=== PATIENT | female | born 1970 | race Two or more races ===

== ENCOUNTER 2023-01-27 10:04 | Emergency (ER) | payer MEDICAID, SELFPAY ==
--- NOTE | ~2023-01-27 | XR_ITS ---
EXAMINATION: XR SHOULDER, RIGHT CLINICAL INFORMATION: Shoulder pain COMPARISON: None available. TECHNIQUE: AP external rotation, Grashey, scapular Y, and axillary views of the right shoulder. FINDINGS: The bones and soft tissues are normal. No fracture. Glenohumeral and acromioclavicular alignment is anatomic with normal joint space. No abnormal soft tissue calcifications. XR/XR shoulder RT min 2V IMPRESSION: Normal right shoulder.
[2023-01-27 10:21] VITALS: BP 139/80; PULSE 82; RESP 20; TEMP 36.8; O2SAT 97; BMI 31.6
--- NOTE | 2023-01-27 10:29 | ECG_ITS ---
Test Reason : CHEST DISCOMFORT Blood Pressure : / mmHG Vent. Rate : 074 BPM Atrial Rate : 074 BPM P-R Int : 126 ms QRS Dur : 078 ms QT Int : 376 ms P-R-T Axes : 012 001 017 degrees QTc Int : 417 ms Normal sinus rhythm Normal ECG No previous ECGs available Referred By: Generic ED Physician Electronically Signed By:NELLY CROWLEY MD
--- NOTE | 2023-01-27 11:39 | ED_ITS ---
HPI - Extremity Problem General Chief complaint: Extremity Problem Stated complaint: R Shoulder Pain No Injury Time Seen by Provider: 01/27/23 10:57 Source: patient, RN notes reviewed and old records reviewed Mode of arrival: ambulatory History of Present Illness HPI Narrative: 52-year-old female with no significant past medical history presenting to the ED complaining of atraumatic right shoulder pain x3 months. Reports intermittent r adiation to chest and down RLE with associated tingling. States pain worse with ROM of right shoulder. Denies known injury/trauma or fall, heavy lifting, headache, back pain, weakness, SOB MD Complaint: extremity pain Onset (ago): month(s) Related Data Previous Rx's Medication Instructions Recorded acetaminophen 500 mg tablet 500 mg PO Q6H PRN fever or pain 01/27/23 (Tylenol Extra Strength) #14 tabs cyclobenzaprine 5 mg tablet 5 mg PO Q8H PRN pain (scale score 01/27/23 7-10) 5 days #14 tabs lidocaine 5 % topical patch 1 patch topical DAILY PRN pain #30 01/27/23 (Lidoderm) ea naproxen 500 mg tablet 500 mg PO BID PRN pain 10 days #20 01/27/23 tabs Allergies Allergy/AdvReac Type Severity Reaction Status Date / Time No Known Allergies Allergy Verified 01/27/23 10:29 Review of Systems Review of Systems: Constitutional: No Fever, No Chills ENT/Mouth: No Ear Pain, No Nasal Congestion, No sore throat, No Rhinorrhea, No Swallowing Difficulty Cardiovascular: No Chest Pain, No SOB Respiratory: No Cough Gastrointestinal: No Nausea, No Vomiting, No Abdominal pain Genitourinary: No Dysuria, No Urinary Frequency, No Hematuria, No Urinary In continence/retention, No Flank Pain Musculoskeletal: + joint pain, No Myalgias, No Joint Swelling Skin: No Skin Lesions, No rash Neuro: No Weakness, No Numbness, + Paresthesias Yes all other systems are reviewed and are negative Constitutional: Constitutional: Reports as per [facility] Past Medical History Attestation statement: The following information was validated with the patient. Source: old records reviewed Social History Social History Advance Directives: No Advance Directives Information Provided: Yes Physical Exam Vital Signs: Vital Signs: Last Vital Signs Temp 98.2 F 01/27/23 10:21 Pulse 82 01/27/23 10:21 Resp 20 01/27/23 10:21 BP 139/80 01/27/23 10:21 Pulse Ox 97 01/27/23 10:21 O2 Del Method Room Air 01/27/23 10:21 BMI result Body Mass Index 31.6 Const: General: cooperative, healthy appearing and no acute distress Orientation/consciousness: patient oriented x3 Limitations: no limitations HEENT: Head: Yes normal to inspection and Yes atraumatic Ears: hearing grossly normal bilaterally General nose exam: Normal external nose present Face and sinus: Yes normal facial exam Eyes: General: appearance normal, both eyes and all related structures EOM: EOMs intact bilaterally Neck: Other: + mild right paraspinal/trapezius muscle tenderness Neck: Yes normal visual inspection, Yes no meningeal signs, No anterior neck swelling and No torticollis Resp: Effort & Inspection: normal respiratory effort and no respiratory distress Cardio: Rate: regular rate Heart sounds: S1 normal heart sound present and S2 normal heart sound present Peripheral pulses: Peripheral pulses 2+ throughout Back/Spine/Pelvis: Other: No midline cervical/thoracic/lumbar spinous tenderness/step-off or deformity Skin: Rashes: no rashes Wounds: no wounds Neuro: General: patient oriented x3, tone normal and no meningeal signs Cranial nerves: Yes CN's II-XII intact bilaterally Gait exam (Neuro): Normal gait present Extrem: Other: Right shoulder without noted deformity. Diffusely tender to palpation. Limited ROM secondary to pain. Neurovascular intact distally. No swelling/erythema or warmth General: Yes normal to inspection Course Course Course Narrative: XR shoulder RT min 2V IMPRESSION: Normal right shoulder. Results discussed with patient including worrisome signs and symptoms and strict return precautions, and when to return to the emergency department. They verbalized understanding and feel safe for discharge at this time. Medications Administered Discontinued Medications Generic Name Dose Route Start Last Admin Trade Name Freq PRN Reason Stop Dose Admin Ketorolac Tromethamine 30 mg 01/27/23 11:45 01/27/23 11:52 Ketorolac Tromethamine 30 Mg/Ml Vial IM 01/27/23 11:46 30 mg ONCE ONE Administration Medical Decision Making Medical Decision Making [facility] Narrative: 52-year-old female with no significant past medical history presenting to the ED complaining of atraumatic right shoulder pain x3 months. On exam vital signs stable, NAD, nontoxic appearing, physical exam as noted above. No midline spinous tenderness throughout or red flag symptoms. Reproducible right shoulder tenderness with limited ROM secondary to pain. No weakness. Neurovascular intact. Concern for arthritis vs tendon/ligamental or rotator cuff injury. Low suspicion for ACS, symptoms atypical. Unlikely PE or cervical dissection. Low suspicion for cord compression Plan: EKG, shoulder x-ray, IM Toradol Please refer to course for remaining clinical decision making, interpretation of labs/imaging results, and discussions with consultants and/or family members. Differential Diagnosis Differential Diagnoses: The differential diagnosis associated with the presentation includes As above Lab Data MDM Lab Attestation statement: I reviewed the patient's lab results. Independent Interpretation I performed an independent interpretation of an: EKG (My interpretation EKG normal sinus rhythm rate of 74. Pr interval 126. QTC 417. No previous to compare. No STEMI ) and Plain X-Ray Radiology Impression Discussion of test interpretation with radiology: I have reviewed the radiologist's reading. Independent Historian Clinical information obtained from an independent historian. History obtained from or confirmed by: Other (son) External Record Review External record reviewed: Inpatient record, Office record, Outpatient record, Prior outpatient labs, Prior outpatient radiology, Primary care record and Outside ED record Tests considered The following testing was considered but not selected: As above Prescription Management I considered prescription management with: Pain Medication Discharge Plan Discharge Clinical Impression: Right shoulder pain Patient Disposition: Home, Self-Care Instructions: Shoulder Pain (ED) Additional Instructions: Your x-ray and EKG were reassuring Your pain is likely musculoskeletal Please follow-up with orthopedic Flexeril is a muscle relaxer, take at night as it makes you drowsy, do not drive, drink alcohol, or operate machinery while taking it Naproxen as an anti-inflammatory / pain medication, take with food Lidoderm patches are numbing patches, apply to painful area In addition take Tylenol at home If symptoms persist or worsen, pain becomes unbearable, you developed urinary retention or incontinence, or weakness return to the ED Renee radiograf?a y electrocardiograma fueron tranquilizadores. Es probable que renee dolor sea musculoesquel?naomi. Por favor mick un seguimiento con el ortop?dico. Flexeril es un relajante muscular, t?andres por la noche ya que produce somnolencia, no conduzca, adam alcohol ni opere maquinaria mientras lo ritu. Naproxeno sheila antiinflamatorio/analg?sico, kimmy con alimentos Los parches de Lidoderm son parches adormecedores, se aplican en el ?aaron dolor jhoana. Adem?s, tome Tylenol en casa. Si los s?ntomas persisten o empeoran, el dolor se vuelve insoportable, usted desarrolla retenci?n urinaria o incontinencia, o debilidad, regrese al servicio de urgencias. Prescriptions: New acetaminophen [Tylenol Extra Strength] 500 mg tablet 500 mg PO Q6H PRN (Reason: fever or pain) Qty: 14 0RF lidocaine [Lidoderm] 5 % adhesive patch,medicated 1 patch topical DAILY MDD remove after 12 hours PRN (Reason: pain) Qty: 30 0RF Rx Instructions: leave on most painful area for up to 12 hrs naproxen 500 mg tablet 500 mg PO BID PRN (Reason: pain) 10 Days Qty: 20 0RF cyclobenzaprine 5 mg tablet 5 mg PO Q8H PRN (Reason: pain (scale score 7-10)) 5 Days Qty: 14 0RF Referrals: [facility] – [place] [facility] [Provider Group] - 1 week Interventions: ED Discharge Assessment Last Done: 01/27/23 13:03 Discharge Date/Time: 01/27/23 13:03 Print Language: Chinese
[2023-01-27] MEDS: Ketorolac Tromethamine 30 MG/ML VIAL IM (11:52)
== END 2023-01-27 13:03 | disposition home or self-care (01) ==
PROVIDERS: Emergency Provider Emergency Medicine
DX: M25.511 Pain in right shoulder (principal); R07.89 Other chest pain; Z79.899 Other long term (current) drug therapy
CPT/HCPCS: 73030; 93005; 96372; 99283; 99284; J1885

== ENCOUNTER 2023-02-21 09:38 | Outpatient (AMB) | payer OTHER, SELFPAY ==
[2023-02-21 09:40] VITALS: BMI 31.4
--- NOTE | 2023-02-21 09:40 | MHC.OFFVIS ---
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 Patient reports that she has had ongoing right shoulder pain for about 4 months now. Denies injury. Limited and painful ROM. Complaints of numbness and tingling in both hands. 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 She complains of pain in her right shoulder for ~3 months now. She has pain with daily activity and limited ROM. She denies any falls, injury, or prior treatment. Review of Systems Const All systems reviewed & are unremarkable except as noted in HPI and below Physical Exam Vital Signs: BMI result Body Mass Index 31.4 Const General: no acute distress, alert and awake Orientation/consciousness: patient oriented x3 HEENT Head: Yes normocephalic and Yes atraumatic Eyes EOM: EOMs intact bilaterally Resp Effort & Inspection: normal respiratory effort and able to speak in complete sentences Cardio Jugular venous distension: no JVD Skin General skin exam: turgor normal Rashes: no rashes Neuro General: patient oriented x3 Extrem Other: ER to 10 degrees compared to 50 on the contralateral side. Active and passive abduction limited Psych Appearance: grossly normal Affect: normal affect Attitude: cooperative Office Procedures Joint Injection/Drain Joint Injection/Drain Details: Injected 1 mL of Decadron and 3 mL 1% lidocaine and 3 mL of 0.25% Marcaine. Site was prepped using aseptic technique. Patient tolerated the procedure well. Primary Site: right shoulder Approach Used: anterolateral Coding 44624 - Large joint Procedure code (CPT) selection complete Results Reviewed Results Reviewed: I personally reviewed relevant radiographs Normal right shoulder Assessment & Plan Assessment & Plan (1) Adhesive capsulitis of right shoulder: Code(s): M75.01 - Adhesive capsulitis of right shoulder Plan: This is a 52-year-old woman with right shoulder use capsulitis. I recommend physical therapy and I injected her right shoulder. I explained the condition. Plan Scribed for Sachin Sandra MD by Dominic Samayoa medical supply technician, on 02/21/23 at 10:00 AM, EST. Orders: Orders PT Evaluation and Treatment Today M75.01 - Adhesive capsulitis of right shoulder Coding Level of Care Code New Pt Level 3 (12660) Diagnoses Adhesive capsulitis of right shoulder M75.01 CPT Codes Coding - 79738 Large joint: 51726 - Large joint ([id number])
== END 2023-02-21 10:35 | disposition home or self-care (01) ==
PROVIDERS: Visit Provider Orthopaedic Surgery
DX: M75.01 Adhesive capsulitis of right shoulder (principal)
CPT/HCPCS: 20610; 99203

== ENCOUNTER → 2023-02-21 09:38 | Outpatient (BNVA) | payer OTHER, SELFPAY | PROVIDERS: Visit Provider Orthopaedic Surgery | DX: M75.01 Adhesive capsulitis of right shoulder (principal) | CPT/HCPCS: 20610; 99202; J0665; J1100 ==

== ENCOUNTER 2023-03-17 10:19 | Emergency (ER) | payer OTHER, SELFPAY ==
[2023-03-17 11:22] VITALS: BP 132/79; PULSE 79; RESP 16; TEMP 37; O2SAT 98; BMI 28.3
--- NOTE | 2023-03-17 11:30 | ED.GENADULT ---
HPI - General Adult General Chief complaint: General Medical Stated complaint: Med refill, pain in arm Time Seen by Provider: 03/17/23 11:29 Source: patient Mode of arrival: ambulatory Limitations: no limitations History of Present Illness HPI narrative: 52-year-old female with pmh of high cholesterol and hypothyroidism and adhesive capsititis of right shoulder presents to ED for medication refill of Synthroid and simvastatin and chronic right shoulder pain. patient wants pain med for chronic right shoulder pain. Patient states her PCP rodolfo not refill her Synthorid and simvastatin. patient denies any recent trauma of right upper extremity, sweling, chest pain, shortness of breath, tingling, hotness, coldness, or ecchyomsis. Related Data Previous Rx's Medication Instructions Recorded acetaminophen 500 mg tablet 500 mg PO Q6H PRN fever or pain 01/27/23 (Tylenol Extra Strength) #14 tabs cyclobenzaprine 5 mg tablet 5 mg PO Q8H PRN pain (scale score 01/27/23 7-10) 5 days #14 tabs lidocaine 5 % topical patch 1 patch topical DAILY PRN pain #30 01/27/23 (Lidoderm) ea naproxen 500 mg tablet 500 mg PO BID PRN pain 10 days #20 01/27/23 tabs cyclobenzaprine 10 mg tablet 10 mg PO TID PRN muscle spasm 7 03/17/23 days #21 tabs levothyroxine 25 mcg tablet 25 mcg PO DAILY 14 days #14 tabs 03/17/23 (Synthroid) simvastatin 20 mg tablet 20 mg PO DAILY 14 days #14 tabs 03/17/23 Allergies Allergy/AdvReac Type Severity Reaction Status Date / Time No Known Allergies Allergy Verified 01/27/23 10:29 Review of Systems Review of Systems: med refill. RIght shoulder pain Yes all other systems are reviewed and are negative Physical Exam ED Vital Signs: Vital Signs - 24 hr 03/17/23 11:22 Temperature 98.6 F Pulse Rate 79 Respiratory Rate 16 Blood Pressure 132/79 Pulse Oximetry 98 Oxygen Delivery Method Room Air BMI result Body Mass Index 28.3 Const General: cooperative, healthy appearing, comfortable, no acute distress, well developed, alert and awake Orientation/consciousness: oriented to person, oriented to place, oriented to time and patient oriented x3 HENMT Head: Yes normal to inspection, Yes No palpable skull fracture present, Yes normocephalic and Yes atraumatic Eyes General: appearance normal, both eyes and all related structures Neck Neck: Yes normal visual inspection, Yes full ROM, Yes no lymphadenopathy, Yes no meningeal signs, Yes trachea midline, Yes supple, No anterior neck swelling and No tender Chest Chest palpation & inspection: normal inspection of the chest and normal palpation of entire chest wall Resp Effort & Inspection: normal respiratory effort and able to speak in complete sentences Auscultation: clear to auscultation bilaterally Cardio Jugular venous distension: no JVD Heart sounds: S1 normal heart sound present and S2 normal heart sound present GI Inspection: Yes normal to inspection Palpation (GI): Soft to palpation, not firm, nontender, no guarding and not rigid General: Yes no CVA tenderness Back/Spine/Pelvis Back: no CVA tenderness and No back tenderness Skin General skin exam: no rashes or lesions noted, elasticity normal and turgor normal Neuro General: oriented to person, oriented to place, oriented to time, patient oriented x3, gait normal, tone normal, moves all extremities, Normal light touch and pain sensation, no meningeal signs and no focal motor deficits Extrem General: Yes normal to inspection and Yes full ROM Shoulder/upper arm images: 1. tenderness on palpation. negative for erythema, ecchymosis, deformity, hotness, coldness, and crepitus. Neuro/Vascular exam is intact. MOtor exam intact, but with pain. patient states this is chronic. Psych Appearance: grossly normal, well kempt and not disheveled Medical Decision Making Medical Decision Making MDM Narrative: 52 yold female with pmh of hypothryoidism, and high cholesterol presents to the Ed for medicaiton refill for syndthoid and simvastatin. Also wants right shoulder pain medication. Denies any new trauma, chest pain, shortness of breath, stiffness, redness, or deformity. No new imaging needed for right upper extremity. MEds refilled. Patient educated on moving shoulder and follow up with PT and PCP. Differential Diagnosis Differential Diagnoses: The differential diagnosis associated with the presentation includes (meds refill. adhesive capsulitis) Prescription Management I considered prescription management with: Other (Synthroid, simvastatin, cyclobenzaprine) Discharge Plan Discharge Clinical Impression: Medication refill Patient Disposition: Home, Self-Care Instructions: Medicine Refill (ED) Additional Instructions: Akshat un seguimiento con el proveedor de atenci?n primaria para continuar reabasteciendo el medicamento. Regrese al servicio de urgencias de inmediato si presenta dolor de tamie, dolor en el pecho, dificultad para respirar, dolor en las extremidades superiores, hinchaz?n, debilidad, mareos, fiebre, escalofr?os, palpitaciones, latidos r?pidos del coraz?n o cualquier otro s?ntoma preocupante. Please follow-up with the primary care provider continued refills of the medication. Return to the ED immediately for any headache, chest pain, shortness of breath, pain upper extremity, swelling, weakness, dizziness, fever, chills, palpitations, heart beating fast, or any other concerning symptoms. Prescriptions: New simvastatin 20 mg tablet 20 mg PO DAILY 14 Days Qty: 14 0RF levothyroxine [Synthroid] 25 mcg tablet 25 mcg PO DAILY 14 Days Qty: 14 0RF cyclobenzaprine 10 mg tablet 10 mg PO TID PRN (Reason: muscle spasm) 7 Days Qty: 21 0RF Rx Instructions: side effect is drowsiness. No Action acetaminophen [Tylenol Extra Strength] 500 mg tablet 500 mg PO Q6H PRN (Reason: fever or pain) Qty: 14 0RF lidocaine [Lidoderm] 5 % adhesive patch,medicated 1 patch topical DAILY MDD remove after 12 hours PRN (Reason: pain) Qty: 30 0RF Rx Instructions: leave on most painful area for up to 12 hrs naproxen 500 mg tablet 500 mg PO BID PRN (Reason: pain) 10 Days Qty: 20 0RF cyclobenzaprine 5 mg tablet 5 mg PO Q8H PRN (Reason: pain (scale score 7-10)) 5 Days Qty: 14 0RF Interventions: ED Discharge Assessment Last Done: 03/17/23 11:57 Discharge Date/Time: 03/17/23 11:57 Print Language: Korean
== END 2023-03-17 11:57 | disposition home or self-care (01) ==
PROVIDERS: Emergency Provider Student in an Organized Health Care Education/Training Program; PCP Internal Medicine
DX: M25.511 Pain in right shoulder (principal); Z76.0 Encounter for issue of repeat prescription; E03.9 Hypothyroidism, unspecified; E78.5 Hyperlipidemia, unspecified
CPT/HCPCS: 99282; 99283

== ENCOUNTER 2023-04-22 10:41 | Outpatient (AMB) | payer OTHER, SELFPAY ==
[2023-04-22 10:42] VITALS: BP 112/78; PULSE 93; TEMP 36.2; O2SAT 96; BMI 30.4
--- NOTE | 2023-04-22 10:42 | MHC.OFFWIV ---
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 Pt new to [facility] [place], originally from [place]. She has an appointment with PCP in July 2023. Pt currently on Levothyroxine 25 mcg and Simvastatin 20 mg. She has Thyroid disease and has been taking meds for 3 years now. She is not sure what kind kind of thyroid disease she has. I will refill her medications today for 7 days pending Lab results ordered today. Will adjust dosing accordingly. [facility] Social History Patient Tobacco Use Status: Never used Tobacco Review of Systems Const All systems reviewed & are unremarkable except as noted in HPI and below Physical Exam Vital Signs: Last Vital Signs Temp 97.2 F 04/22/23 10:42 Pulse 93 04/22/23 10:42 BP 112/78 04/22/23 10:42 Pulse Ox 96 04/22/23 10:42 Oxygen Delivery Method Room Air 04/22/23 10:42 BMI result Body Mass Index 30.4 Const General: no acute distress Orientation/consciousness: patient oriented x3 Neuro General: patient oriented x3 Gait exam (Neuro): Normal gait present Psych Appearance: grossly normal Speech and movement: Clear speech present Assessment & Plan Assessment & Plan (1) Medication refill: Code(s): Z76.0 - Encounter for issue of repeat prescription Plan: - Refilled medications for 7 day - Will order refills after Lab work results. (2) Thyroid disease: Code(s): E07.9 - Disorder of thyroid, unspecified Plan: - Labs for TSH - Labs for Lipids - Obtain fasting labs Orders: Orders TSH reflex Free T4 Today E07.9 - Disorder of thyroid, unspecified Lipid Panel with Reflex Today E07.9 - Disorder of thyroid, unspecified Medications: Changed From levothyroxine (Synthroid) 25 mcg PO DAILY 14 days 14 tabs 0RF E07.9 - Disorder of thyroid, unspecified To levothyroxine (Synthroid) 25 mcg PO DAILY 7 days 7 tabs 0RF E07.9 - Disorder of thyroid, unspecified From simvastatin 20 mg PO DAILY 14 days 14 tabs 0RF E78.2 - Mixed hyperlipidemia To simvastatin 20 mg PO DAILY 7 days 7 tabs 0RF E78.2 - Mixed hyperlipidemia Coding Level of Care Code New Pt Level 3 (51808) Diagnoses Medication refill Z76.0 Thyroid disease E07.9 Time Spent (min) 15
== END 2023-04-22 11:15 | disposition home or self-care (01) ==
PROVIDERS: PCP Internal Medicine; Visit Provider Nurse Practitioner Family
DX: E07.9 Disorder of thyroid, unspecified (principal); Z76.0 Encounter for issue of repeat prescription
CPT/HCPCS: 99203

== ENCOUNTER 2023-04-23 06:31 | Outpatient (REF) | payer OTHER, SELFPAY ==
[2023-04-23 11:24] LABS: Cholesterol 206 mg/dL (<200); HDL Cholesterol 73 mg/dL (>40); LDL Cholesterol Calculated 113 mg/dL (<100); Triglycerides 102 mg/dL (<150)
[2023-04-23 11:31] LABS: Reflex LDLD? No
[2023-04-23 12:13] LABS: Free T4 (Free Thyroxine) 0.86 ng/dL (0.71-1.85)
== END 2023-04-23 06:32 | disposition home or self-care (01) ==
LOC: HO.HMGCLDS 06:31
PROVIDERS: PCP Internal Medicine; Visit Provider Nurse Practitioner Family
DX: E07.9 Disorder of thyroid, unspecified (principal)
CPT/HCPCS: 36415; 80061; 84439; 84443

== ENCOUNTER 2023-04-29 09:00 | Outpatient (RCR) | payer OTHER, SELFPAY ==
--- NOTE | 2023-03-11 08:55 | MHC.PT.EP ---
[facility] [place] Office [place] Office [place] Office [address] [phone] F: [phone] F: [phone] F: [phone] F: [phone] Physical Therapy Plan of Care Date of Evaluation: 03/11/23 Date of Surgery: NA Diagnosis: Adhesive capsulitis of R shoulder Assessment: Lita is a 52 year old female who is referred to PT for adhesive capsulitis of R shoulder . She reports of having gradual onset of shoulder pain about 4 months back. She denies any trauma or falls. Her symptoms have gotten worse with time. On PT examination she presented 4/10 pain at rest and 10/10 pain with shoulder movements sideways, backwards and sleeping on R side, presented with TTP over R UT, decreased R shoulder ROM and joint mobility, decreased R shoulder and scap strength and altered posture. She lives with her son. She is independent with all ADLS but has pain with them and therefore modifies the way she does them. She is unemployed. She would benefit from skilled PT to address the aforementioned impairments and improve tolerance to functional activities. Frequency and Duration: The patient will be seen 2/week for 6 weeks Short Term Goals: 1. Pt will have 50% decrease in pain which will enable her to sleep through the night in 3 weeks. 2. Pt will present 50% improvement in R shoulder ROM which will enable her to perform all ADLS with shoulder movements less than 90 degrees without pain in 4 weeks. 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 Pt will present with increase in shoulder strength by 1 grade which will enable her to perform IADLS at home without pain in 5 weeks. 2. Pt will be independent with all HEP for symptom management and maintenance following d/c in 6 weeks. Treatment Plan: Modalities to reduce pain, spasms and effusion. Manual therapy to restore motion and function. Therapeutic exercise to improve strength and flexibility. Neuromuscular re-education for posture and balance. Therapeutic activities to return to functional activities of daily living. Electronically signed by: Tatiana Mills PT DPT Please sign and return to therapist. Thank you for your referral.
--- NOTE | 2023-04-29 10:27 | MHC.PT.DC ---
[facility] [place] [facility] [place] [facility] [place] [facility] [address] Niels Gordon [address] [phone] F: [phone] F: [phone] F: [phone] F: [phone] Physical Therapy Discharge Report Diagnosis: Adhesive capsulitis of R shoulder Date of Surgery: NA Date of Evaluation: 03/11/23 Date of Discharge: 04/29/23 Treatments to Date: 6 Cancellations to Date: 5 No Shows to Date: 2 Discharge Status: Independent with HEP Patient Elected to Stop Discharge Summary: Lita arrived for her 6th visit stating she still has pain in her R shoulder. Her neck pain is better but her shoulder pain has been unchanged. Her gross R shoulder ROM does not appear to have improved much. Per pt she has been doing her HEP. She has attended 6 PT visits, canceled 5 and no showed 2 in the course over 1.5 months. She is independent with her scap strengthening and shoulder ROM exercises. Due to plateau with PT and inability to achieve further improvement with ROM and pain levels, Lita requested d/c from PT today. She was advised to follow up with her ortho to further discuss pain management. I reviewed all exercises with her today. Lita is d/c from PT today. Electronically signed by: Tatiana Mills PT DPT Please sign and return to therapist. Thank you for your referral.
== END 2023-04-29 10:28 | disposition home or self-care (01) ==
LOC: HO.PT 09:00
PROVIDERS: PCP Internal Medicine; Visit Provider Orthopaedic Surgery
DX: M75.01 Adhesive capsulitis of right shoulder (principal)
CPT/HCPCS: 97110; 97140; 97161

== ENCOUNTER 2023-05-20 10:56 | Outpatient (AMB) | payer OTHER, SELFPAY ==
[2023-05-20 11:02] VITALS: BMI 30.4
--- NOTE | 2023-05-20 11:02 | A.OFFVIS_ITS ---
Intake Vital Signs 05/20/23 11:02 Height 5 ft 1 in Weight 161 lb BMI 30.4 Intake Visit Reasons: OV - Rt Shoulder Adhesive Capsulitis Allergies No Known Allergies Allergy (Verified 04/22/23 10:42) HPI OV - Rt Shoulder Adhesive Capsulitis HPI Details Lita is a 52 year old left hand dominant female who presents today for a follow up of her Right Shoulder Adhesive Capsulitis. Last Injection administered on 02/21/23. Patient reports that this last injection was not helpful, she is requesting medication for her pain. [facility] Social History Patient Tobacco Use Status: Never used Tobacco Physical Exam Vital Signs: BMI result Body Mass Index 30.4 Extrem Other: ER to 5 deg with pain on right. ER to 45 on left abduction with scapular recruitment to 70 on right. Assessment & Plan Assessment & Plan (1) Adhesive capsulitis of right shoulder: Code(s): M75.01 - Adhesive capsulitis of right shoulder Plan: Right shoulder adhesive capsulitis. I recommend referral to Dr Cameron in IR for embolization. Orders: Referrals Interventional Radiology Referral M75.01 - Adhesive capsulitis of right kenny Coding Level of Care Code Est Pt Level 3 (27846) Diagnoses Adhesive capsulitis of right shoulder M75.01
== END 2023-05-20 12:02 | disposition home or self-care (01) ==
PROVIDERS: PCP Internal Medicine; Visit Provider Orthopaedic Surgery
DX: M75.01 Adhesive capsulitis of right shoulder (principal)
CPT/HCPCS: 99213

== ENCOUNTER → 2023-05-20 10:56 | Outpatient (BNVA) | payer OTHER, SELFPAY | PROVIDERS: PCP Internal Medicine; Visit Provider Orthopaedic Surgery | DX: M75.01 Adhesive capsulitis of right shoulder (principal) | CPT/HCPCS: 99212 ==

== ENCOUNTER 2023-06-29 23:11 | Emergency (ER) | payer OTHER, SELFPAY ==
--- NOTE | 2023-06-29 | ECG_ITS ---
Test Reason : difficulty swolling Blood Pressure : / mmHG Vent. Rate : 069 BPM Atrial Rate : 069 BPM P-R Int : 128 ms QRS Dur : 080 ms QT Int : 384 ms P-R-T Axes : 055 -03 011 degrees QTc Int : 411 ms Normal sinus rhythm Normal ECG When compared with ECG of 27-JAN-2023 10:28, No significant change was found Referred By: Generic ED Physician Electronically Signed By:JUAN CORADO
--- NOTE | ~2023-06-29 | XR_ITS ---
EXAMINATION: XR CHEST CLINICAL INFORMATION: Shortness of breath and chest pain COMPARISON: None available. TECHNIQUE: Frontal view of the chest was obtained. FINDINGS: No significant abnormality is noted involving the heart, lungs, mediastinum, bony thorax or soft tissues. XR/XR chest 1V IMPRESSION: Unremarkable examination.
[2023-06-29 23:29] VITALS: BP 169/82; PULSE 79; RESP 18; TEMP 36.7; O2SAT 100; BMI 28.3
[2023-06-30 00:15] VITALS: BP 146/63; PULSE 80; RESP 16; TEMP 36.9; O2SAT 97
--- NOTE | 2023-06-30 00:17 | MHC.EDTECH ---
patient ekg was taken and was reasd bp provider ,vitals done ,rsv/flu swab and streap swab all sent to lab .
[2023-06-30 00:30] LABS: IDNOW Serial# 08D9AD1C; Strep A Nucleic Acid Negative (Negative)
[2023-06-30 01:00] LABS: Influenza A PCR NEGATIVE (Negative); Influenza B PCR NEGATIVE (Negative); Resp Syncy Virus RNA Qual PCR NEGATIVE (Negative); SARS COV2 PCR INHOUSE NEGATIVE (Negative)
[2023-06-30 07:06] VITALS: BP 147/88; PULSE 72; RESP 12; TEMP 36.1; O2SAT 98
--- NOTE | 2023-06-30 07:39 | ED_ITS ---
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 The patient notes she has had intermittent dyspnea not related to exertion comes out of nowhere for months in [place] they could not figure it out they tested her for asthma and it was negative. She had same episode last night woke up feeling dyspneic and then her throat felt tight and she couldn't relax. MD complaint: dyspnea Onset (ago): month(s) (8+) Location: chest Radiation: non-radiation Severity: moderate Pain Consistency: intermittent Relieving factors: none Exacerbating factors: none Associated symptoms: other (will feel she cannot swallow at times) Treatments prior to arrival: none Related Data Previous Rx's ?Medication ?Instructions ?Recorded acetaminophen 500 mg tablet 500 mg PO Q6H PRN fever or pain 01/27/23 (Tylenol Extra Strength) #14 tabs levothyroxine 25 mcg tablet 25 mcg PO DAILY #90 tabs 04/24/23 (Synthroid) simvastatin 20 mg tablet 20 mg PO DAILY #90 tabs 04/24/23 hydroxyzine HCl 25 mg tablet 25 mg PO BID PRN anxiety #30 tabs 06/30/23 Allergies Allergy/AdvReac Type Severity Reaction Status Date / Time No Known Allergies Allergy Verified 06/29/23 23:32 Review of Systems 2 Review of Systems: Constitutional : No Fever, No Chills ENT/Mouth : No sore throat, No Rhinorrhea, pos Swallowing Difficulty Eyes: No Eye Pain, No Swelling, No Redness Cardiovascular : No Chest Pain, positive SOB, No Orthopnea, no Edema Respiratory : No Cough, No Sputum, No Wheezing, positive dyspnea Gastrointestinal : No Nausea, No Vomiting, No Diarrhea, No abdominal Pain, No Hematochezia, No Melena Genitourinary : No Dysuria, No Urinary Frequency, No Hematuria Musculoskeletal : No joint pain, No Myalgias Skin : No Skin Lesions, No rash Neuro : No Weakness, No Numbness, No Dizziness, No Headache Psych : No Anxiety/Panic, No Depression All other systems reviewed and are negative PMFSH Past Medical History Attestation statement: The following information was validated with the patient. Source: old records reviewed Medical History Adhesive capsulitis of right shoulder Social History Social History Patient Tobacco Use Status: Never used Tobacco Advance Directives: No Advance Directives Information Provided: Yes Physical Exam ED Vital Signs: Vital Signs - 24 hr 06/29/23 23:29 06/30/23 00:15 06/30/23 07:06 Temperature 98.0 F 98.4 F 97.0 F Pulse Rate 79 80 72 Respiratory Rate 18 16 12 Blood Pressure 169/82 H 146/63 H 147/88 H Pulse Oximetry 100 97 98 Oxygen Delivery Method Room Air Room Air Room Air BMI result Body Mass Index 28.3 Appearance: Alert. Oriented X3. No acute distress. Eyes: Pupils equal, round and reactive to light. ENT: Pharynx normal. Neck: Normal inspection. Neck supple. CVS: Normal heart rate and rhythm. Pulses normal. Respiratory: No respiratory distress. Breath sounds normal. Abdomen: Soft and nontender. Skin: Skin warm and dry. Normal skin color. Normal skin turgor. Extremities: No lower extremity edema. No calf ttp Neuro: Oriented X 3. No motor deficit. No sensory deficit. Medical Decision Making Medical Decision Making MDM Narrative: 53 yo female with recurrent intermittent dyspnea and feeling like her throat is closing at times not related to exertion cannot find a cause per her at this time will need labs for anemia, CXR for mass, her throat exam is completely normal her lungs are clear it does seem possibly anxiety related. No chest pain/hypoxia or related to exertion to suggest ACS she also has had this for 8 months doubt VTE. If work up negative will start on atarax. Differential Diagnosis Differential Diagnoses: The differential diagnosis associated with the presentation includes anxiety, anemia no chest pain not exertional doubt ACS 8 months duration no signs of dvt no hypoxia doubt VTE Admission/Observation Consideration of admission/observation: Escalation of care including admission/observation considered labs and VS reassuring Lab Data [facility] Lab Attestation statement: I reviewed the patient's lab results. 06/30/23 08:08 06/30/23 08:08 Labs: Lab Results 06/30/23 06/30/23 Range/Units 00:14 08:08 WBC 6.7 (4.8-10.8) X10*3/uL RBC 3.93 L (4.20-5.50) X10*6/uL Hgb 11.6 L (12.0-16.0) g/dl Hct 35.9 L (37.0-47.0) % MCV 91.3 (80.0-98.0) fL MCH 29.5 (27.0-33.0) pg MCHC 32.3 (31.0-35.0) g/dl RDW 12.4 (11.0-16.0) % Plt Count 241 (160-400) X10*3/uL MPV 10.2 (9.4-12.3) fL Absolute Nucleated RBC 0.000 (0.0-0.012) X10*3/uL Nucleated RBC % (auto) 0.0 (0.0-0.2) /100WBC Sodium 142 (135-145) mmol/L Potassium 4.5 (3.3-5.1) mmol/L Chloride 106 (96-108) mmol/L Carbon Dioxide 28 (22-29) mmol/L Anion Gap 13 (12-20) BUN 17 H (9-16) mg/dL Creatinine 0.76 (0.5-1.4) mg/dL Estim Creat Clear Calc 75.5 Estimated GFR > 60 Random Glucose 91 (60-115) mg/dL Calcium 9.7 (8.4-10.2) mg/dL TSH 2.03 (0.32-4.0) uIU/mL Influenza Type A (PCR) NEGATIVE (Negative) Influenza Type B (PCR) NEGATIVE (Negative) RSV RNA Qual (PCR) NEGATIVE (Negative) SARS-CoV-2 RNA (RT-PCR) NEGATIVE (Negative) S. pyogenes GrpA JANE Negative (Negative) Independent Interpretation I performed an independent interpretation of an: EKG and Plain X-Ray Interpretation: Rate: 69 Rhythm: NSR [place]: left Normal P waves. Normal JAROD. Normal QRS complex. ST T wave : normal no AJ, inverted t wave III qTC: 411 prior studies: no acute ischemia The study has been interpreted contemporaneously by me. . Radiology Impression Discussion of test interpretation with radiology: I have reviewed the radiologist's reading. External Record Review External record reviewed: Outpatient record Prescription Management I considered prescription management with: Other Discharge Plan Discharge Clinical Impression: Chronic dyspnea Patient Disposition: Home, Self-Care Instructions: Dyspnea (ED) Additional Instructions: labs reassuring, chest xray and EKG normal return for worsening symptoms or concerns follow up with your doctor as scheduled thyroid normal Prescriptions: New hydroxyzine HCl 25 mg tablet 25 mg PO BID PRN (Reason: anxiety) Qty: 30 0RF No Action levothyroxine [Synthroid] 25 mcg tablet 25 mcg PO DAILY Qty: 90 0RF simvastatin 20 mg tablet 20 mg PO DAILY Qty: 90 0RF acetaminophen [Tylenol Extra Strength] 500 mg tablet 500 mg PO Q6H PRN (Reason: fever or pain) Qty: 14 0RF Print Language: Honduran
--- NOTE | 2023-06-30 08:10 | PC.NURSE ---
labs obtained and sent
[2023-06-30 08:17] LABS: Hematocrit 35.9 % (37.0-47.0); Hemoglobin 11.6 g/dl (12.0-16.0); Mean Corpuscular HGB Conc 32.3 g/dl (31.0-35.0); Mean Corpuscular Hemoglobin 29.5 pg (27.0-33.0); Mean Corpuscular Volume 91.3 fL (80.0-98.0); Mean Platelet Volume 10.2 fL (9.4-12.3); Platelet Count 241 X10*3/uL (160-400); Red Blood Count 3.93 X10*6/uL (4.20-5.50); Red Cell Distribution Width 12.4 % (11.0-16.0); White Blood Count 6.7 X10*3/uL (4.8-10.8)
[2023-06-30 08:36] LABS: Anion Gap 13 (12-20); Blood Urea Nitrogen 17 mg/dL (9-16); Calcium 9.7 mg/dL (8.4-10.2); Carbon Dioxide 28 mmol/L (22-29); Chloride 106 mmol/L (96-108); Creatinine Clr Calc Pharmacy 75.5; Estimated Glomerular Filt Rate > 60; Glucose Random 91 mg/dL (60-115); Potassium 4.5 mmol/L (3.3-5.1); Sodium 142 mmol/L (135-145)
[2023-06-30 08:53] LABS: TSH reflex Free T4 2.03 uIU/mL (0.32-4.0)
[2023-06-30 09:24] VITALS: BP 147/88; PULSE 72; RESP 12; TEMP 36.2; O2SAT 98
== END 2023-06-30 09:25 | disposition home or self-care (01) ==
PROVIDERS: Emergency Provider Emergency Medicine; PCP Internal Medicine
DX: R06.00 Dyspnea, unspecified (principal)
CPT/HCPCS: 0241U; 36415; 71045; 80048; 84443; 85027; 87651; 93005; 99283; 99284

== ENCOUNTER → 2023-06-29 23:18 | Outpatient (BNV) | payer OTHER, SELFPAY | PROVIDERS: Emergency Provider Emergency Medicine; PCP Internal Medicine; Visit Provider Internal Medicine | DX: R13.10 Dysphagia, unspecified (principal) | CPT/HCPCS: 93010 ==

== ENCOUNTER 2023-07-21 14:10 | Outpatient (REF) | payer OTHER, SELFPAY | END 2023-07-21 14:11 | disposition home or self-care (01) | LOC: HO.RADIR 14:10 | PROVIDERS: PCP Internal Medicine; Visit Provider Orthopaedic Surgery | DX: Z13.89 Encounter for screening for other disorder (principal) ==

== ENCOUNTER 2023-08-03 16:25 | Outpatient (AMB) | payer OTHER, SELFPAY ==
--- NOTE | 2023-08-03 16:52 | A.OFFPC_ITS ---
Vital Signs 08/03/23 16:53 Height 5 ft 1 in Weight 165 lb BMI 31.2 BP 136/90 H Blood Pressure Location Lt brachial Position Sitting Intake Visit Reasons: [employer]/ thyroid Primary Care Provider Required: No Accompanied by: Self / Same As Patient Allergies No Known Allergies Allergy (Verified 08/03/23 17:07) Medication List - Last Reconciled 08/03/23 by Sara Bill MD cyclobenzaprine 10 mg PO BEDTIME hydroxyzine HCl 25 mg PO BID PRN levothyroxine (Synthroid) 25 mcg PO DAILY simvastatin 20 mg PO DAILY Tobacco use date assessed: 08/03/23 Dental Screening Dental Screen Date: 08/03/23 Did you have a dental visit in the last 12 months?: No Did you have a dental problem in the last 6 months where you did not have access to dental care?: No Was dental information given to patient?: Yes HPI HPI Comments History of Present Illness Details This is a 53 year old female with pure hypercholesterolemia, hypothyroidism, right shoulder adhesive capsulitis and anxiety that comes today to establish care. Cholesterol elevated and dietary changes were advised. Last TSH was normal. Adhesive capsulitis is follow by ortho. Anxiety stable with hydroxyzine as needed. She complaints of burining like pain in feet that started few weeks ago and worsens while walking. [facility] Medical History (Updated 08/03/23 @ 17:40 by Sara Bill MD) Adhesive capsulitis of right shoulder Surgical History History of female sterilization History of appendectomy History of hysterectomy Family History Mother Osteoporosis Hypertension Father Hypertension Social History Housing: Apartment Alcohol intake: never Patient Tobacco Use Status: Never used Tobacco e-Cigarette/Vaping Use: Never Used Second Hand Smoke Exposure: No service: No Current occupational status: unemployed Cognitive needs: No Hearing needs: No Vision needs: Yes Questionnaire PHQ-9 Over the last 2 weeks, how often have you been bothered by any of the following problems? 1. Little interest or pleasure in doing things: not at all 2. Feeling down, depressed, or hopeless: several days 3. Trouble falling or staying asleep, or sleeping too much: more than half the days 4. Feeling tired or having little energy: several days 5. Poor appetite or overeating: not at all 6. Feeling bad about yourself - or that you are a failure or have let yourself or your family down: not at all 7. Trouble concentrating on things, such as reading the newspaper or watching television: not at all 8. Moving or speaking so slowly that other people could have noticed. Or the opposite - being so fidgety or restless that you have been moving around a lot more than usual: not at all 9. Thoughts that you would be better off or of hurting yourself in some way: not at all Total score: 4 Depression Screening Interpretation: Positive Depression Screening Follow-up: Existing condition Depression Screening Done: Yes 28695 - PHQ-9 Billing: Yes Source: Developed by Drs. Emanuel Iniguez, Anna Bullock, Justus Agrawal and colleagues, with an educational loli from [employer]. EDWINA-7 AMB Questionnaire EDWINA-7 Date EDWINA - 7 assessed: 08/03/23 Feeling nervous, anxious, or on edge: 1 = Several days Not being able to stop or control worryin = Not at all Worrying too much about different things: 0 = Not at all Trouble relaxin = Not at all Being so restless that it is hard to sit still: 0 = Not at all Becoming easily annoyed or irritable: 1 = Several days Feeling afraid as if something awful might happen: 1 = Several days Total EDWINA-7 score (0-4 normal; 5-9 mild; 10-14 moderate; 15-21 severe): 3 Source: Developed by Drs. Emanuel Iniguez, Justus Llamas and colleagues, with an educational loli from [employer]. EDWINA-7 Assessment Billing EDWINA-7 Assessment Tool: EDWINA-7 Assessment 90929 Review of Systems Const All systems reviewed & are unremarkable except as noted in HPI and below Eyes Reports no additional complaints, Denies change in vision and Denies other visual disturbances Card Denies chest pain at rest, Denies chest pain with activity, Denies edema, Denies irregular heart rhythm, Denies claudication, Denies dyspnea, Denies dyspnea on exertion, Denies orthopnea, Denies paroxysmal nocturnal dyspnea and Denies slow heart rate Resp Denies cough, Denies dyspnea and Denies dyspnea on exertion GI Denies abdominal pain, Denies change in bowel habits, Denies excessive flatus, Denies nausea and Denies vomiting Denies urinary incontinence, Denies urinary hesitancy and Denies urinary urgency Physical exam (Primary Care) Vital Signs: Last Vital Signs BP 136/90 H 08/03/23 16:53 BMI result Body Mass Index 31.2 Tobacco/Smoking Status: Tobacco use Status Tobacco use date assessed 08/03/23 08/03/23 17:04 Patient Tobacco Use Status Never used Tobacco 08/03/23 17:04 e-Cigarette/Vaping Use Never Used 08/03/23 17:04 PHQ-9: PHQ-9 Score PHQ-9: Total score 4 08/03/23 17:04 Depression Screening Interpretation: Positive Depression Screening Follow-up: Existing condition Resp Effort & Inspection: normal respiratory effort Auscultation: clear to auscultation bilaterally Cardio Jugular venous distension: no JVD Rate: regular rate Rhythm: regular rhythm Heart sounds: S1 normal heart sound present and S2 normal heart sound present Assessment and Plan Assessment & Plan (1) Pure hypercholesterolemia: Code(s): E78.00 - Pure hypercholesterolemia, unspecified Plan: Continue statin. (2) Hypothyroidism: Code(s): E03.9 - Hypothyroidism, unspecified Plan: Continue levothyroxine. (3) Adhesive capsulitis of right shoulder: Code(s): M75.01 - Adhesive capsulitis of right shoulder Plan: Follow up with ortho. (4) EDWINA (generalized anxiety disorder): Code(s): F41.1 - Generalized anxiety disorder Plan: Continue hydroxyzine as needed. (5) Neuropathy: Code(s): G62.9 - Polyneuropathy, unspecified Plan: Start gabapentin. Patient aware that can be addictive and sedative. Orders: Orders MM screening mammo BI Today Z12.31 - Encounter for screening mammogram for malignant neoplasm of breast Lipid Panel 4 Months E78.5 - Hyperlipidemia, unspecified Thyroid Stimulating Hormone 4 Months E03.9 - Hypothyroidism, unspecified Medications: New gabapentin 100 mg PO BEDTIME 30 days 30 caps 1RF meloxicam 15 mg PO DAILY 90 days 90 tabs 1RF Coding Level of Care Code New Pt Level 4 (04204) Diagnoses Pure hypercholesterolemia E78.00 Hypothyroidism E03.9 Adhesive capsulitis of right shoulder M75.01 EDWINA (generalized anxiety disorder) F41.1 Neuropathy G62.9 Additional Codes EDWINA-7 Assessment Billing - EDWINA-7 Assessment Tool: EDWINA-7 Assessment [id number] ([id number]) Time Spent (min) 25
[2023-08-03 16:53] VITALS: BP 136/90; BMI 31.2
== END 2023-08-03 17:21 | disposition home or self-care (01) ==
LOC: HO.HMGH 16:50
PROVIDERS: PCP Internal Medicine; Visit Provider Internal Medicine
DX: E78.00 Pure hypercholesterolemia, unspecified (principal); E03.9 Hypothyroidism, unspecified; M75.01 Adhesive capsulitis of right shoulder; F41.1 Generalized anxiety disorder; G62.9 Polyneuropathy, unspecified
CPT/HCPCS: 99204

== ENCOUNTER 2023-08-11 11:10 | Day surgery (SDC) | payer OTHER, SELFPAY ==
[2023-08-11] VITALS (9 sets, daily range): BP systolic 111–130; BP diastolic 62–71; PULSE 52–60; RESP 16–18; TEMP 36.4; O2SAT 96–98; BMI 32.1
--- NOTE | ~2023-08-11 | IR_ITS ---
History: Patient with adhesive capsulitis. Presents for shoulder embolization. The patient has moderate to severe pain located in the anterior, superior, and lateral compartments of the right shoulder with lesser pain noted along the posterior aspect of the shoulder. She has a severely restricted range of motion. Procedures performed: 1. Ultrasound-guided catheterization of the radial artery. 2. Catheterization of the right subclavian artery with right upper extremity arteriography. 3. Catheterization of the posterior circumflex humeral artery with selective angiography and embolization. 4. Catheterization of the anterior circumflex humeral artery with selective angiography and embolization. 5. Catheterization of the thoracoacromial artery with selective angiography and embolization. 6. Catheterization of the suprascapular artery with selective angiography and embolization. 7. Catheterization of the circumflex scapular artery off of the subscapular artery with selective angiography. 8. Catheterization of the coracoid artery with selective angiography. 9. Completion right upper extremity arteriography. Physician: Kwaku Cameron MD FSIR Anesthesia: IV moderate sedation with intravenous fentanyl and versed was administered under my direct supervision with continuous physiologic monitoring for a total of 90 minutes. Specimen: None Drain: None Estimated blood loss: Minimal Consultations: None Procedure in detail: Informed and written consent was obtained with the assistance of a drilling manager. The radial and ulnar arteries were measured in diameter and a Barbeau test was performed prior to the procedure. The patient was deemed suitable for radial catheterization. The patient was positioned supine on the angiography table with the right arm abducted. The right arm was prepped and draped. Under ultrasound, 1% lidocaine was injected subcutaneously and extended to the radial artery. Next, under ultrasound guidance with permanent recordings and direct visualization of needle entry into the artery, the radial artery was catheterized in a retrograde fashion. Using the Seldinger technique, a 5 Lithuanian Terumo Slender sheath was placed. A 4 Lithuanian Rosston catheter was advanced to the proximal right subclavian artery. Diagnostic right upper extremity arteriography was performed. We noted the origins of the thyrocervical trunk supplying the suprascapular artery, the thoracoacromial artery, the coracoid artery, the subscapular artery giving rise to the circumflex scapular artery, and both the anterior and posterior circumflex humeral arteries. There was not obvious hyperemia from the angiogram and on account of this, we felt that we would need to super select multiple arteries to study the vasculature further. Additionally, we anticipated that multiple arteries would need to be treated given the patient's diffuse pain. The posterior circumflex humeral artery was selected first using a combination of the Rosston catheter together with the appropriate 2.0 microcatheter. We alternated use of a Fathom wire and a 0.016 Transcend wire. Diagnostic arteriography showed some hyperemia emanating from this branch. Embolization was performed, but not to stasis, but rather to simply prune the demonstrated hyperemia. A total of 0.25 mL of 100-300 um Merrit embospheres was utilized with follow-up imaging showing decreased, but still good antegrade blood flow without significant hyperemia. The same catheter and wire combo were then used to select the anterior circumflex humeral artery with hyperemia was also noted. Additional embolization was 0.15 mL of the embospheres was performed in this branch, again obtaining the same result with decreased, but still good antegrade blood flow, but no significant residual hyperemia. We then catheterized the thoracoacromial branch with a Progreat microcatheter. We noted moderate hyperemia near the joint space from this artery with selective angiography. Embolization was performed to with 0.2 mL of the embospheres, attaining a similar result. We selected the subscapular artery and the coracoid arteries with the Progreat microcatheter, but these vessels were not treated as there was no evidence of hyperemia. Finally, we catheterized the thyrocervical trunk and subsequently the suprascapular artery. There was significant hyperemia demonstrated in this branch, the greatest of all the branches and the vessel was somewhat enlarged. Therefore, embolization was performed with a total of 0.4 mL of the embospheres with follow-up imaging showing no residual hyperemia. Diagnostic arteriography repeated in the right subclavian artery showed an excellent result with good residual blood flow to the shoulder, but a more pruned appearance and no evidence of hyperemia. We were satisfied with this result and elected to terminate the case. Hemostasis was obtained at the radial artery with a TR band. A sterile dressing was applied. Summary: Successful embolization of multiple arterial branches supplying the right shoulder for adhesive capsulitis as described in detail above.
[2023-08-11 12:19] LABS: INTERNATIONAL NORM RATIO 0.9 (0.9-1.1); Prothrombin Time 11.2 SEC (11.1-13.3)
[2023-08-11 12:22] LABS: Partial Thromboplastin Time 32.7 SEC (26.0-36.8)
--- NOTE | 2023-08-11 13:10 | PC.NURSE ---
Rad nurses and Tito Alarcon made aware patient took meloxicam yesterday. Okay to proceed.
--- NOTE | 2023-08-11 13:11 | PC.NURSE ---
No urine preg obtained due to patient history of hysterectomy.
[2023-08-11] MEDS: oxyCODONE HCl Immed Release 5 MG TABLET PO (17:22)
== END 2023-08-11 18:26 | disposition home or self-care (01) ==
PROVIDERS: Physician Assistant Surgical; Radiology Vascular & Interventional Radiology; PCP Internal Medicine; Visit Provider Orthopaedic Surgery
DX: M75.01 Adhesive capsulitis of right shoulder (principal)
CPT/HCPCS: 36415; 37242; 76937; 85610; 85730; 99152; 99153; C1769; C1887; C1894; J1644; J2250; J2305; J2310; J3010; Q9967

== ENCOUNTER → 2023-08-11 13:12 | Outpatient (BNV) | payer OTHER, SELFPAY | PROVIDERS: PCP Internal Medicine; Visit Provider Radiology Vascular & Interventional Radiology | DX: M75.01 Adhesive capsulitis of right shoulder (principal) | CPT/HCPCS: 36217; 36218; 37242; 75710; 76937; 99152 ==

== ENCOUNTER 2023-08-18 12:43 | Outpatient (REF) | payer OTHER, SELFPAY ==
--- NOTE | ~2023-08-18 | MM_ITS ---
EXAMINATION: MM SCREENING DIGITAL BREAST TOMOSYNTHESIS, BILATERAL CLINICAL INFORMATION: Screening. Asymptomatic. COMPARISON: Mammography: There are no prior mammograms for comparison. TECHNIQUE: Digital breast tomosynthesis is performed in both the craniocaudal and mediolateral oblique views along with computer-aided detection (CAD). Synthesized 2D images are generated from the tomosynthesis. FINDINGS: There are scattered areas of fibroglandular density (ACR BI-RADS breast composition Category b). There are no significant masses, abnormal calcifications, or other abnormalities. MM/MM tomosynthesis screening BI IMPRESSION: No mammographic evidence of malignancy. ASSESSMENT: BI-RADS BI-RADS 1 - Negative RECOMMENDATION: Routine annual mammography screening. 1 year F/U This examination should not preclude the clinical evaluation of a suspicious palpable abnormality. This patient's information was entered into a reminder system with a target due date for their next mammogram.
== END 2023-08-18 12:44 | disposition home or self-care (01) ==
LOC: HO.MAMMO 12:43
PROVIDERS: PCP Internal Medicine; Visit Provider Internal Medicine
DX: Z12.31 Encounter for screening mammogram for malignant neoplasm of breast (principal)
CPT/HCPCS: 77063; 77067

== ENCOUNTER → 2023-08-18 12:45 | Outpatient (BNV) | payer OTHER, SELFPAY | PROVIDERS: PCP Internal Medicine; Visit Provider Radiology Diagnostic Radiology | DX: Z12.31 Encounter for screening mammogram for malignant neoplasm of breast (principal) | CPT/HCPCS: 77063; 77067 ==

== ENCOUNTER 2023-12-26 16:34 | Outpatient (REF) | payer OTHER, SELFPAY | END 2023-12-26 16:35 | disposition home or self-care (01) | LOC: HO.LAB 16:34 | PROVIDERS: PCP Internal Medicine; Visit Provider Internal Medicine | DX: Z00.00 Encounter for general adult medical examination without abnormal findings (principal); M25.561 Pain in right knee; M25.562 Pain in left knee; G89.29 Other chronic pain; H53.8 Other visual disturbances; K21.9 Gastro-esophageal reflux disease without esophagitis; R30.0 Dysuria; G62.9 Polyneuropathy, unspecified | CPT/HCPCS: 81003; 90471; 99212; 99396 ==

== ENCOUNTER 2023-12-26 16:34 | Outpatient (AMB) | payer OTHER, SELFPAY ==
--- NOTE | 2023-12-26 16:36 | MHC.PC.OV ---
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 Mammogram done 2023 was normal. No need for Pap smear due to hysterectomy. Last colonoscopy was in [place] 3 years ago and he was normal. She complains of bilateral knee pain and right shoulder pain. She also complains of burning like pain in her abdomen and epigastrium that happens occasionally and I will order upper GI series. She also has blurry vision and would like to see Ophthalmology. Complains of dysuria that started few days ago and an antibiotic will be sent. Urinalysis was sent for urine culture. Declines flu vaccine. She complains of burning like pain in feet and I will increase gabapentin from 100 mg to 300 mg. [facility], [facility] Medical History Adhesive capsulitis of right shoulder Surgical History History of female sterilization History of appendectomy History of hysterectomy Family History Mother Osteoporosis Hypertension Father Hypertension Social History Housing: Apartment Alcohol intake: never Patient Tobacco Use Status: Never used Tobacco e-Cigarette/Vaping Use: Never Used Second Hand Smoke Exposure: No service: No Current occupational status: unemployed Cognitive needs: No Hearing needs: No Vision needs: Yes Questionnaire Thrive Questionnaire Date Thrive assessed: 12/26/23 I am a: Patient What is your living situation today?: I have a steady place to live Within the past 12 months, did the food you bought not last and you didn't have the money to get more?: Never true Within the past 12 months, did you worry whether your food would run out before you got money to buy more?: Never true Do you have trouble paying for medicines?: No Do you have trouble getting transportation to medical appointments?: No Do you have trouble paying your heating and electricity bill?: No Do you have trouble taking care of your child, family member or friend?: No Do you have trouble with day-to-day activities such as bathing, preparing meals, shopping, managing finances, etc.?: No Are you currently unemployed and looking for a job?: No Are you interested in more education?: No Please select the resources that you would like help with: None Currently or been in a relationship where the following occur: No concerns reported THRIVE Score: 0 AUDIT C Alcohol Use Questionnaire (AUDIT-C) 1. How often do you have a drink containing alcohol?: Never Total Score: 0 EDWINA-7 AMB Questionnaire EDWINA-7 Date EDWINA - 7 assessed: 08/03/23 Source: Developed by Drs. Emanuel Iniguez, Anna Bullock, Justus Agrawal and colleagues, with an educational loli from [employer]. Review of Systems Const All systems reviewed & are unremarkable except as noted in HPI and below Eyes Reports blurry vision Card Denies chest pain at rest, Denies chest pain with activity, Denies edema, Denies irregular heart rhythm, Denies claudication, Denies dyspnea, Denies dyspnea on exertion, Denies orthopnea, Denies paroxysmal nocturnal dyspnea and Denies slow heart rate Resp Denies cough, Denies dyspnea and Denies dyspnea on exertion GI Reports abdominal pain, Denies change in bowel habits, Denies excessive flatus, Reports heartburn, Denies nausea and Denies vomiting Denies urinary incontinence, Denies urinary hesitancy and Reports urinary urgency Musc Denies atrophy, Denies deformity, Reports arthralgias and Denies limited range of motion Skin/Breast Denies bleeding lesions, Denies changing lesions and Denies rash Physical exam (Primary Care) Vital Signs: Last Vital Signs BP 120/72 12/26/23 16:37 BMI result Body Mass Index 32.1 BMI Assessment/Plan discussion: High BMI High, discussed plan: lifestyle, weight reduction, dietary and physical activity Tobacco/Smoking Status: Tobacco use Status Tobacco use date assessed 08/03/23 12/26/23 16:42 Patient Tobacco Use Status Never used Tobacco 12/26/23 16:42 e-Cigarette/Vaping Use Never Used 12/26/23 16:42 Thrive Assessment: Date of Thrive Assessment Date Thrive assessed 12/26/23 12/26/23 16:46 Currently or been in a relationship where the following occur: No concerns reported [facility] Head: Yes normal to inspection, Yes normocephalic and Yes atraumatic Ears: external ears normal Eyes General: appearance normal, both eyes and all related structures Eyelids: Yes eyelids normal Conjunctivae: conjunctivae normal Neck Neck: Yes normal visual inspection and Yes supple Resp Effort & Inspection: normal respiratory effort Auscultation: clear to auscultation bilaterally Cardio Jugular venous distension: no JVD Rate: regular rate Rhythm: regular rhythm Heart sounds: S1 normal heart sound present and S2 normal heart sound present GI Inspection: Yes normal to inspection Palpation (GI): Soft to palpation and nontender Auscultation: normal bowel sounds Skin General skin exam: no rashes or lesions noted Neuro General: no focal motor deficits Extrem General: Yes full ROM Psych Appearance: grossly normal Office Procedures Flu Questionnaire Does the patient have a severe egg allergy?: No Results AMB Urinalysis, Automated UA Leukoctes 1 Kell/uL Last Edit by HORTENSIA Rush on 12/26/23 17:04 UA Nitrite Positive Last Edit by HORTENSIA Rush on 12/26/23 17:04 UA Urobilinogen 2 mg/dL Last Edit by HORTENSIA Rush on 12/26/23 17:04 UA Protein 1 mg/dL Last Edit by HORTENSIA Rush on 12/26/23 17:04 UA pH 6.0 Last Edit by HORTENSIA Rush on 12/26/23 17:04 UA Blood 0 Danilo/uL Last Edit by HORTENSIA Rush on 12/26/23 17:04 UA Specific [place] 1.025 Last Edit by HORTENSIA Rush on 12/26/23 17:04 UA Ketone Positive Last Edit by HORTENSIA Rush on 12/26/23 17:04 UA Bilirubin 0 mg/dL Last Edit by Leona Cochran HORTENSIA on 12/26/23 17:04 UA Glucose 0 mg/dL Last Edit by Leona Cochran HORTENSIA on 12/26/23 17:04 Immunizations Fluarix Triv [id number] (PF) 45 mcg (15 mcg x 3)/0.5 mL IM syringe Performing Provider: Sara Bill MD [facility] [place] Documented (not given) by: HORTENSIA Rush on 12/26/23 16:45 Reason Not Given: Patient Refused Coding Level of Care Code Est Pt Level 4 (39543) Est Pt Prev Care 40-64y(79639) Diagnoses Physical exam Z00.00 Chronic pain of right knee M25.561; G89.29 Chronicity: chronic Chronic pain of left knee M25.562; G89.29 Chronicity: chronic Chronic right shoulder pain M25.511; G89.29 Chronicity: chronic Blurry vision H53.8 Chronic GERD K21.9 Neuropathy G62.9 Dysuria R30.0 Time Spent (min) 40 Assessment & Plan Assessment & Plan (1) Physical exam: Code(s): Z00.00 - Encounter for general adult medical examination without abnormal findings Category: Medical Plan: Repeat in a year. (2) Right knee pain: Code(s): M25.561 - Pain in right knee Category: Medical Qualifiers: Chronicity: chronic Qualified Code(s): M25.561 - Pain in right knee; G89.29 - Other chronic pain Plan: X-ray ordered. (3) Left knee pain: Code(s): M25.562 - Pain in left knee Category: Medical Qualifiers: Chronicity: chronic Qualified Code(s): M25.562 - Pain in left knee; G89.29 - Other chronic pain Plan: X-ray ordered. (4) Right shoulder pain: Code(s): M25.511 - Pain in right shoulder Category: Medical Qualifiers: Chronicity: chronic Qualified Code(s): M25.511 - Pain in right shoulder; G89.29 - Other chronic pain Plan: Referred to Ortho. (5) Blurry vision: Code(s): H53.8 - Other visual disturbances Category: Medical Plan: Referred to Ophthalmology. (6) Chronic GERD: Code(s): K21.9 - Gastro-esophageal reflux disease without esophagitis Category: Medical Plan: Upper GI ordered. (7) Neuropathy: Code(s): G62.9 - Polyneuropathy, unspecified Category: Medical Plan: Increase gabapentin to 300 mg at bedtime. (8) Dysuria: Code(s): R30.0 - Dysuria Category: Medical Plan: Start Bactrim. Urine culture ordered. Orders: Orders Influenza [id number] Immunization Today Z23 - Encounter for immunization XR knee LT 2V Today M25.562 - Pain in left knee Comprehensive [place]. Panel Fast Today Z00.00 - Encounter for general adult medical examination without abnormal findings [place] upper GI series Today K21.9 - Gastro-esophageal reflux disease without esophagitis XR knee RT 2V Today M25.561 - Pain in right knee Lipid Panel Today E78.5 - Hyperlipidemia, unspecified Thyroid Stimulating Hormone Today E03.9 - Hypothyroidism, unspecified Urine Culture Today R30.0 - Dysuria AMB Urinalysis Automated Today R30.0 - Dysuria Referrals Ophthalmology Referral H53.8 - Other visual disturbances Orthopedics Referral M25.511 - Pain in right shoulder Medications: New gabapentin 300 mg PO BEDTIME 90 days 90 caps 1RF sulfamethoxazole-trimethoprim 800-160 mg (Bactrim DS) 1 tab PO BID 3 days 6 tabs 0RF Discontinued gabapentin Discontinued Reason: Patient Completed Course 100 mg PO BEDTIME 30 days 30 caps 1RF
[2023-12-26 16:37] VITALS: BP 120/72; BMI 32.1
== END 2023-12-26 17:05 | disposition home or self-care (01) ==
PROVIDERS: PCP Internal Medicine; Visit Provider Internal Medicine
DX: Z00.00 Encounter for general adult medical examination without abnormal findings (principal); M25.561 Pain in right knee; G89.29 Other chronic pain; M25.562 Pain in left knee; M25.511 Pain in right shoulder; H53.8 Other visual disturbances; K21.9 Gastro-esophageal reflux disease without esophagitis; G62.9 Polyneuropathy, unspecified; R30.0 Dysuria

== ENCOUNTER 2023-12-27 07:15 | Outpatient (REF) | payer OTHER, SELFPAY ==
[2023-12-27 08:28] LABS: Alanine Aminotransferase 12 U/L (0-31); Albumin Level 4.2 g/dL (3.5-5.0); Alkaline Phosphatase 87 U/L (39-117); Anion Gap 14 (12-20); Aspartate Amino Transferase 18 U/L (5-31); Bilirubin Total 0.4 mg/dL (0.0-1.0); Blood Urea Nitrogen 14 mg/dL (9-16); Calcium 9.4 mg/dL (8.4-10.2); Carbon Dioxide 27 mmol/L (22-29); Chloride 107 mmol/L (96-108); Cholesterol 146 mg/dL (<200); Estimated Glomerular Filt Rate > 60; Glucose Fasting 92 mg/dL (60-99); HDL Cholesterol 66 mg/dL (>40); LDL Cholesterol Calculated 57 mg/dL (<100); Potassium 3.9 mmol/L (3.3-5.1); Sodium 144 mmol/L (135-145); Total Protein 7.3 g/dL (6.5-8.0); Triglycerides 115 mg/dL (<150)
[2023-12-27 08:46] LABS: Thyroid Stimulating Hormone 0.48 uIU/mL (0.32-4.0)
== END 2023-12-27 07:16 | disposition home or self-care (01) ==
LOC: HO.XRAY 07:15
PROVIDERS: PCP Internal Medicine; Visit Provider Internal Medicine
DX: Z00.00 Encounter for general adult medical examination without abnormal findings (principal); M25.562 Pain in left knee; M25.561 Pain in right knee; E03.9 Hypothyroidism, unspecified; E78.5 Hyperlipidemia, unspecified
CPT/HCPCS: 36415; 73560; 80053; 80061; 84443

== ENCOUNTER 2024-01-06 15:00 | Outpatient (RCR) | payer OTHER, SELFPAY | END 2024-01-06 16:18 | disposition home or self-care (01) | LOC: HO.PT 15:00 | PROVIDERS: PCP Internal Medicine; Visit Provider Internal Medicine | DX: M75.01 Adhesive capsulitis of right shoulder (principal) | CPT/HCPCS: 97110; 97140; 97161; 97530 ==

== ENCOUNTER 2024-01-27 10:57 | Outpatient (AMB) | payer OTHER, SELFPAY ==
--- NOTE | 2024-01-27 10:58 | MHC.OFFVIS ---
Vital Signs 01/27/24 10:59 Height 51 ft Weight 170 lb BMI 0.3 Intake Visit Reasons: OV- Right Shoulder Adhesive Capsulitis Intake Note: Lita is a 52 year old left hand dominant female who presents today for a follow up of her Right Shoulder Adhesive Capsulitis. At her last visit she was referred to Dr. Cameron for IR Emobilization which was complete on 08/11/23. Allergies No Known Allergies Allergy (Verified 12/26/23 16:46) HPI HPI OV- Right Shoulder Adhesive Capsulitis: Details: This is a 53-year-old with adhesive capsulitis that improved markedly after embolization procedure. She still has pain and stiffness however. This has been present for almost a year and a half. [facility] Medical History Adhesive capsulitis of right shoulder Surgical History History of female sterilization History of appendectomy History of hysterectomy Family History Mother Osteoporosis Hypertension Father Hypertension Social History Housing: Apartment Alcohol intake: never Patient Tobacco Use Status: Never used Tobacco e-Cigarette/Vaping Use: Never Used Second Hand Smoke Exposure: No service: No Current occupational status: unemployed Cognitive needs: No Hearing needs: No Vision needs: Yes Physical Exam Vital Signs: BMI result Body Mass Index 0.3 Extrem Other: 35 degrees of external rotation with discomfort. Abduction to 90 degrees of forward flexion 110 degrees. Positive Torres and Neer. 4+5 empty can. Assessment & Plan Assessment & Plan (1) Internal derangement of right shoulder: Code(s): M24.811 - Other specific joint derangements of right shoulder, not elsewhere classified Category: Medical Plan: This is a 53-year-old woman with adhesive capsulitis of the right shoulder that has not improved. She has pain however with overhead lifting and at night and while her motion has improved she is still not feeling like she is able to return to her normal activities. Injections have not worked and I recommend an MRI to assess. She has done physical therapy, tried NSAIDs and had an embolization procedure were certainly help with her adhesive capsulitis her signs and symptoms now suggest shoulder internal derangement which may have been the underlying problem initially. I discussed this with her. An MRI was ordered. She will follow up accordingly. Orders: Orders MR shoulder RT wo con Today M24.811 - Other specific joint derangements of right shoulder, not elsewhere classified Coding Level of Care Code Est Pt Level 4 (02966) Diagnoses Internal derangement of right shoulder M24.811
== END 2024-01-27 12:30 | disposition home or self-care (01) ==
PROVIDERS: PCP Internal Medicine; Visit Provider Orthopaedic Surgery
DX: M24.811 Other specific joint derangements of right shoulder, not elsewhere classified (principal)
CPT/HCPCS: 99214

== ENCOUNTER → 2024-01-27 10:57 | Outpatient (BNVA) | payer OTHER, SELFPAY | PROVIDERS: PCP Internal Medicine; Visit Provider Orthopaedic Surgery | DX: M24.811 Other specific joint derangements of right shoulder, not elsewhere classified (principal) | CPT/HCPCS: 99212 ==

== ENCOUNTER 2024-03-03 10:55 | Outpatient (REF) | payer OTHER, SELFPAY ==
--- NOTE | ~2024-03-03 | MR_ITS ---
EXAMINATION: MR SHOULDER WITHOUT CONTRAST RIGHT CLINICAL INFORMATION: Other specific joint derangements of right shoulder, not elsewhere classified M24.811. Unable to report to correct motion due to patient claustrophobia. Reduced ROM, pain has gotten worse over time. Numbness in right arm. COMPARISON: XR right shoulder 01/27/2023. TECHNIQUE: MRI of the shoulder without contrast was performed on a high-field scanner. FINDINGS: Evaluation is somewhat limited secondary to patient motion. ROTATOR CUFF: No rotator cuff tendon tear. No muscle atrophy or fatty infiltration. BICEPS: Intact. CORACOACROMIAL ARCH: The undersurface of the acromion is flat with no subacromial spur. Mild acromioclavicular arthrosis. Trace fluid within subacromial-subdeltoid bursa, consistent with minimal bursitis. LABRUM/CAPSULE: No displaced labral tear. Evaluation is limited secondary to patient motion. Intact joint capsule. GLENOHUMERAL JOINT/MARROW: No acute osseous injury. Intact articular cartilage. Trace glenohumeral joint effusion. MR/MR shoulder RT wo con IMPRESSION: 1. Evaluation is somewhat limited secondary to patient motion. 2. No rotator cuff tendon tear. 3. Mild acromioclavicular arthrosis. 4. Minimal subacromial-subdeltoid bursitis. 5. Trace glenohumeral joint effusion. Electronically signed by: Boby Knight MD 03/06/2024 10:41 AM EST
== END 2024-03-03 10:56 | disposition home or self-care (01) ==
LOC: HO.MRI 10:55
PROVIDERS: PCP Internal Medicine; Visit Provider Orthopaedic Surgery
DX: M24.811 Other specific joint derangements of right shoulder, not elsewhere classified (principal)
CPT/HCPCS: 73221